=== PATIENT | female | born 1970 | race Caucasian/White ===

== ENCOUNTER → 2017-01-03 | Outpatient (CLI) | payer OTHER | LOC: BMCIMAGING 15:14 | DX: Z12.31 Encounter for screening mammogram for malignant neoplasm of breast (principal) | CPT/HCPCS: G0202 ==

== ENCOUNTER → 2018-02-11 | Outpatient (CLI) | payer OTHER | LOC: BMCIMAGING 12:17 | PROVIDERS: ATTEND Obstetrics & Gynecology | DX: Z12.31 Encounter for screening mammogram for malignant neoplasm of breast (principal) ==

== ENCOUNTER → 2018-09-20 | Outpatient (CLI) | payer OTHER | LOC: FIMAGING 18:23 | PROVIDERS: ATTEND Family Medicine | DX: M50.321 Other cervical disc degeneration at C4-C5 level (principal) ==

== ENCOUNTER → 2018-10-18 | Outpatient (CLI) | payer OTHER | LOC: BMCIMAGING 09:34 | PROVIDERS: ATTEND Obstetrics & Gynecology | DX: Z13.820 Encounter for screening for osteoporosis (principal); M85.89 Other specified disorders of bone density and structure, multiple sites; Z87.81 Personal history of (healed) traumatic fracture; Z82.62 Family history of osteoporosis ==

== ENCOUNTER → 2019-02-13 | Outpatient (CLI) | payer OTHER | LOC: BMCIMAGING 14:53 | PROVIDERS: ATTEND Obstetrics & Gynecology | DX: Z12.31 Encounter for screening mammogram for malignant neoplasm of breast (principal) ==